=== PATIENT | male | born 1955 | race Caucasian/White ===

== ENCOUNTER 2016-12-11 19:47 | Emergency (ER) | payer OTHER ==
[~2016-12-11] VITALS: Ht 167.6 cm; Wt 75.3 kg
--- NOTE | 2016-12-11 20:30 | NUR ---
dr drake at the bedside,talking to pt, throat swab done, waiting for the results.
--- NOTE | 2016-12-11 21:04 | NUR ---
Dr Gimenez in and talked to pt about the result.
--- NOTE | 2016-12-11 21:06 | NUR ---
aci given to pt,discharged ambulatory in stable condition.
[2016-12-11] MEDS ORDERED: KETOROLAC TROMETHAMINE 30 MG INJ ONE (21:14)
[2016-12-11 21:15] VITALS: BP 131/53
[2016-12-11] MEDS ORDERED: KETOROLAC TROMETHAMINE 30 MG INJ IM ONE (21:15)
== END 2016-12-11 21:15 | disposition home or self-care (01) ==
LOC: ER 19:49
DX: J02.9 Acute pharyngitis, unspecified (principal); F10.20 Alcohol dependence, uncomplicated; F17.200 Nicotine dependence, unspecified, uncomplicated; F12.10 Cannabis abuse, uncomplicated; Z59.0 Homelessness; Z86.19 Personal history of other infectious and parasitic diseases
CPT/HCPCS: 36415; 86403; 87070; 96372; 99284; A4663; J1885